=== PATIENT | male | born 1955 | race Caucasian/White ===

== ENCOUNTER 2017-03-03 07:09 | Inpatient (IN) | payer SELFPAY ==
--- NOTE | ~2017-03-03 | CO ---
Unit #: [id number] #: [id number] Patient: LUDWIN MOTA [id number] [address] [place], [place] [address] [id number] I MR#: [id number] NAME: LUDWIN MOTA ROOM: 5 Age: 61 Sex: M Admission Date: 03/03/2017 : 1955 Attending Physician: Elkin Haidre M.D. CONSULTATION REPORT REASON FOR CONSULTATION Chest pain. HISTORY OF PRESENT ILLNESS This is a 61-year-old white male, who is known to our group, who has a history of coronary artery disease where he underwent angioplasty and stent placement to the LAD in 2009. In 2010, he had PCI and stent to the circumflex and diagonal branch. At some point, he had right coronary artery stent placed. In 04/2015, he had a non-ST elevation myocardial infarction and cardiac catheterization revealed 99% in-stent stenosis to the proximal LAD stent. There was 70% stenosis of the second diagonal branch that was not dilated. The posterior marginal branch of circumflex artery had 50% in-stent stenosis. Right coronary artery had nonobstructive in-stent stenosis. He is continued on medical management. The patient presents to the emergency room with a complaint of substernal dull chest pain that radiated to bilateral inner aspect of both upper arms to his elbow, associated with dyspnea that started this morning. There was no relief after 3 sublingual nitroglycerins. He also states that he had bilateral shoulder pain with exertion like making the bed or climbing stairs prior to this event. He had no substernal chest pain or shortness of breath at that time. He recently had a bout of diarrhea with weakness and was not eating and drinking well because of the diarrhea. Today, he felt better. Because of chest pain, he came to the emergency room for evaluation. In the emergency room, he was hypertensive with blood pressure of 201/104 mmHg that was treated with nitrates and clonidine. His initial troponin was 0.06. He was given aspirin, Lovenox and nitrates. He was also given a Plavix load. His blood pressure improved. He was noted to have acute onset of renal failure with a creatinine of 1.6. Potassium was also low at 3.1. Repeat troponin was elevated at 1.34. His preceding EKG showed mild ST depression in the lateral leads. He is currently chest pain free. PAST MEDICAL HISTORY 1. PCI and stent to the LAD, 11/08/2009. 2. PCI and stent to the circumflex artery and diagonal branch on 05/22/2011 per previous dictations. 3. Non-ST elevation myocardial infarction, status post cardiac catheterization 04/19/[address] Crespo at [facility] with left main normal. LAD, proximal, 99% in-stent stenosis. Second diagonal branch with 60% to 70% in-stent stenosis. Circumflex artery nondominant vessel, normal. Posterior marginal branch, 50%, in-stent. Right coronary artery dominant vessel with distal stent with 40% in-stent stenosis. PDA Unit #: [id number] #: [id number] Patient: MOTA,LUDWIN and PLV branches are normal. Ejection fraction of 50%. 4. 2D echocardiogram on 10/28/2009 showed an ejection fraction of greater than 55% with trace tricuspid regurgitation. 5. Hypertension. 6. Hyperlipidemia. 7. Active smoker. PAST SURGICAL HISTORY No previous surgeries. SOCIAL HISTORY The patient is . He works for [employer]. He smokes up to 3/4 of pack of cigarettes daily for the past 40+ years. Drinks alcohol on rare occasion. He has no illicit drug use. FAMILY HISTORY Positive for heart disease in his mother. ALLERGIES No known drug allergies. HOME MEDICATIONS Nitroglycerin 0.4 mg sublingual p.r.n., Lipitor 80 mg q.h.s., hydralazine 50 mg daily, aspirin 81 mg daily, lisinopril 20 mg q.h.s. REVIEW OF SYSTEMS CONSTITUTIONAL: Negative for fever or chills. Has some weight gain, but no weight loss. HEENT: No headache, hearing or vision changes or difficulty with swallowing. No dizziness. CARDIOVASCULAR: Has chest pain as described in the HPI. Denies palpitations. No paroxysmal nocturnal dyspnea or orthopnea. Denies syncope or near-syncope. RESPIRATORY: Reports dyspnea with chest pain. Has occasional nonproductive cough. No hemoptysis. GASTROINTESTINAL: Positive for recent diarrhea, but no abdominal pain or vomiting. No constipation, hematemesis or hematochezia. EXTREMITIES: Negative for lower extremity edema. PHYSICAL EXAMINATION VITAL SIGNS: Blood pressure 159/98, heart rate 82, temperature is 97.8, BMI 33. GENERAL: This is an obese 61-year-old white male, who is in no acute respiratory distress. NEUROLOGIC: He is awake, alert, and oriented. There are no focal weaknesses. NECK: Trachea is midline. No thyromegaly or lymphadenopathy. No jugular venous distention. HEART: S1 and S2. Heart sounds are normal. No murmurs, rubs, or clicks. Regular rate and rhythm. LUNGS: Clear with diminished breath sounds throughout both lungs. No rales, rhonchi, or wheezes. ABDOMEN: Soft and nontender with bowel sounds are present. EXTREMITIES: Without leg edema. Pedal pulses are palpable. DIAGNOSTIC STUDIES LABORATORY RESULTS: Hemoglobin 15.9, hematocrit 47.4, platelet count 195, white count is 8.9. Sodium 132, potassium 3.1, BUN 22, creatinine 1.6, Unit #: [id number] #: [id number] Patient: MOTA,LUDWIN glucose 181, troponin 0.06 to 1.34, CK total 212, MB index 4.9. IMAGING STUDIES: Chest x-ray shows borderline cardiomegaly with no active disease. CARDIOVASCULAR STUDIES: EKG shows normal sinus rhythm with a rate of 96 beats per minute with a slight less than 0.[address] depression in the lateral leads, V4 through V6. IMPRESSION 1. Acute non-ST elevation myocardial infarction. 2. History of multiple percutaneous coronary intervention and stents. 3. Uncontrolled hypertension. 4. Hyperlipidemia. 5. Acute kidney injury secondary to volume depletion. 6. Hypokalemia. 7. Nicotine abuse. PLAN 1. Cardiology was consulted for non-ST elevation myocardial infarction. 2. Start the patient on Integrilin drip and have pharmacy to dose because of elevated creatinine. 3. Increase high-intensity statin to Lipitor 80 mg q.h.s. 4. Lipid profile will be obtained. 5. Repeat EKG. 6. Supplement potassium. 7. Agree with IV fluids to rehydrate. 8. Add beta-liz to slow heart rate. 9. Blood pressure control with HI inhibitor. 10. The patient needs a cardiac catheterization to re-evaluate his coronary anatomy given non-ST elevation myocardial infarction and history of multiple stents that had in-stent stenosis in 2015. I spoke with the patient about the cardiac catheterization including risks and benefits, and he is agreeable. 11. Encouraged the patient to quit smoking. 12. Cardiac rehab at discharge. Thank you for allowing us to assist with this patient's care. Dictated by... Arie David A.P.R.N. for Mahnaz Grant/yadira TD: 03/04/2017 04:53 JOB #: [id number] CONSULTATION REPORT Page 1 of 1 X Arie David APRN X CONSULTATION REPORT
--- NOTE | ~2017-03-03 | EKG ---
PATIENT: LUDWIN MOTA UNIT #: [id number] Ventricular Rate: 79 BPM Atrial Rate: 79 BPM P-R Interval: 142 ms QRS Duration: 80 ms Q-T Interval: 374 ms QTC Calculation(Bezet): 428 ms P [place]: -11 degrees Calculated R [place]: 33 degrees Calculated T [place]: 21 degrees Diagnosis Line: Normal sinus rhythm Diagnosis Line: Normal ECG Diagnosis Line: When compared with ECG of 03-MAR-2017 20:12, Diagnosis Line: (unconfirmed) Diagnosis Line: No significant change was found Diagnosis Line: Confirmed by DELANEY CHAVARRIA MD ([id number]) on 03/05/2017 Diagnosis Line: 3:00:14 PM INTERPRETING MD: DEON HURD
--- NOTE | ~2017-03-03 | EKG ---
PATIENT: LUDWIN MOTA UNIT #: [id number] Ventricular Rate: 76 BPM Atrial Rate: 76 BPM P-R Interval: 184 ms QRS Duration: 76 ms Q-T Interval: 402 ms QTC Calculation(Bezet): 452 ms P [place]: 77 degrees Calculated R [place]: 13 degrees Calculated T [place]: 47 degrees Diagnosis Line: Normal sinus rhythm Diagnosis Line: Normal ECG Diagnosis Line: When compared with ECG of 05-MAR-2017 11:26, Diagnosis Line: No significant change was found Diagnosis Line: Confirmed by BRAIN SANTOS MD ([id number]) on Diagnosis Line: 03/09/2017 9:52:01 AM INTERPRETING ELLA AGUILAR
--- NOTE | ~2017-03-03 | EKG ---
PATIENT: LUDWIN MOTA UNIT #: [id number] Ventricular Rate: 80 BPM Atrial Rate: 80 BPM P-R Interval: 164 ms QRS Duration: 82 ms Q-T Interval: 384 ms QTC Calculation(Bezet): 442 ms P [place]: 58 degrees Calculated R [place]: 35 degrees Calculated T [place]: 19 degrees Diagnosis Line: Normal sinus rhythm Diagnosis Line: Normal ECG Diagnosis Line: When compared with ECG of 03-MAR-2017 07:12, Diagnosis Line: Nonspecific T wave abnormality no longer evident Diagnosis Line: in Lateral leads Diagnosis Line: Confirmed by DELANEY CHAVARRIA MD ([id number]) on 03/05/2017 Diagnosis Line: 2:58:00 PM INTERPRETING MD: DEON HURD
--- NOTE | ~2017-03-03 | HP ---
Unit #: [id number] #: [id number] Patient: LUDWIN MOTA [id number] [address] [address] [id number] I MR#: [id number] NAME: LUDWIN MOTA ROOM: 5 Age: 61 Sex: M Admission Date: 03/03/2017 : 1955 Attending Physician: Gordon Montanez M.D. HISTORY AND PHYSICAL CHIEF COMPLAINT Chest pain. HISTORY OF PRESENT ILLNESS The patient is a 61-year-old male with a history of coronary artery disease, status post cardiac catheterization in 2009 which revealed 95% stenosis in the mid left anterior descending artery. The patient had stent placement. The patient underwent repeat cardiac cath on May 22, 2011, that revealed the patent stent. However, there was disease noted in the left circumflex and diagonals. The patient underwent two stents in the distal left circumflex and diagonal artery. However, the patient was lost to followup secondary to insurance. The patient stopped taking Plavix. The patient woke up this morning and went to take a shower and started noticing chest pain. The patient took nitroglycerin sublingual x3 which did not relieve the pain, and he presented to the emergency room. The patient was found to have positive troponins in the emergency room with a level of 0.06 and is being admitted for the above reasons. The patient complains of lightheadedness. He denies any diaphoresis, nausea, or vomiting. He denies any fever. PAST MEDICAL HISTORY 1. Hypertension. 2. Coronary artery disease. 3. Hyperlipidemia. 4. Active tobacco abuse. PAST SURGICAL HISTORY Cardiac stents x4. ALLERGIES No known drug allergies. HOME MEDICATIONS 1. Aspirin. 2. Lipitor. 3. Hydralazine. 4. Lisinopril. 5. Nitroglycerin. FAMILY HISTORY Reviewed and none. Unit #: [id number] #: [id number] Patient: LUDWIN MOTA SOCIAL HISTORY The patient lives in a private residence with his son. He smokes three-fourths of a pack per day. He denies any alcohol or any illicit drug abuse. REVIEW OF SYSTEMS A 14-point review of systems was performed and only pertinent positive findings are as described above. The remaining are negative. PHYSICAL EXAMINATION GENERAL: Patient is lying in bed not in acute distress. VITAL SIGNS: Temperature is 97.8, pulse 95, respiratory rate 18, blood pressure 191/105, and saturating 96% on room air. HEENT: Head atraumatic, normocephalic. Pupils equal, round, and reactive to light and accommodation. Extraocular movements are intact. NECK: Supple. LUNGS: Decreased air entry at the bases. HEART: Regular rate and rhythm. Positive for murmur. ABDOMEN: Soft. Positive bowel sounds. EXTREMITIES: No cyanosis, no clubbing. NEUROLOGIC: Alert, awake, and oriented. No gross focal motor deficit. DIAGNOSTIC STUDIES LABORATORY: Troponin 0.06. Sodium 132, potassium 3.1, chloride 104, bicarb 20, glucose 181, BUN 22, creatinine 1.6, AST 42, ALT 42, and alkaline phosphatase 100. INR is 1. Troponin less than 0.05. WBC 8.9, hemoglobin 15.9, hematocrit 47.4, and platelets are 195,000. IMAGING: Chest x-ray shows no evidence of acute pulmonary disease. CARDIOLOGY: EKG shows nonspecific T wave in the inferolateral leads. ASSESSMENT AND PLAN 1. Non-ST segment myocardial infarction. 2. Chest pain. 3. Hypertension. 4. Hypokalemia. 5. Acute kidney injury. PLAN Admit the patient as inpatient to telemetry. Patient will be evaluated by Cardiology for the non-STEMI. Check echocardiogram and check lipid profile and TSH. Continue with Lovenox 1 mg/kg subcutaneous q.12. Continue serial troponins. Continue with IV fluids of normal saline at 75 mL/hr. Patient has received 300 mg of Plavix in the emergency room. Further recommendations will follow. Dictated by Mahnaz Morris TD: 03/03/2017 19:40 JOB #: [id number] Unit #: [id number] #: [id number] Patient: LUDWIN MOTA HISTORY AND PHYSICAL Page 1 of 1 X GORDON MONTANEZ MD X HISTORY AND PHYSICAL
--- NOTE | ~2017-03-03 | CR72 ---
[facility] A Service of [facility] RADIOLOGY TEXT RESULTS PATIENT: LUDWIN MOTA LOCATION: [facility]12-30 : 59 UNIT #: [id number] AGE: [address]: GORDON DÍAZ MD SEX: M ORDER DR: [id number] [address] [address] [id number] MR#: [id number] Acc #: [id number] NAME: LUDWIN MOTA : 1955 SEX: M STUDY DATE/TIME: 03/03/2017 7:35 UNIT: SED ROOM: STUDY DESCRIPTION: CR Chest Single View Portable Attending Physician: David Carye M.D. Ordering Physician: David Carey M.D. MEDICAL IMAGING REPORT This report is preliminary unless electronic signature is present. EXAM Portable chest x-ray 03/03/2017 HISTORY Chest pain. 40 minutes prior to arrival, chest pressure, shortness of air. Smoker 45 years. Cardiac symptoms stents x4. Coronary artery disease. TECHNIQUE AP radiograph of the chest is presented. COMPARISON STUDIES 08/12/2016. FINDINGS The bony structures are unremarkable. There is borderline cardiac enlargement, which is stable. The lungs are well inflated. There is no evidence for acute pulmonary disease, pleural effusion, or pneumothorax. No suspicious nodule. Dictated by... Olivier Gallagher M.D. THIS IS AN ELECTRONICALLY VERIFIED REPORT Olivier Gallagher M.D. at 03/03/2017 5:50 PM BRITTONK/bennett TD: 03/03/2017 15:25 JOB #: [id number] [facility] A Service of [facility] RADIOLOGY TEXT RESULTS PATIENT: LUDWIN MOTA LOCATION: [facility] 5712-30 : [birth year] UNIT #: [id number] AGE: [address]: GORDON DÍAZ MD SEX: M ORDER DR: MEDICAL IMAGING REPORT Page 1 of 1
--- NOTE | ~2017-03-03 | DS ---
Unit #: [id number] #: [id number] Patient: LUDWIN MOTA [id number] [address] [place], [place] [address] [id number] MR#: [id number] NAME: LUDWIN MOTA ROOM: [facility] Age: 61 Sex: M Admission Date: 03/03/2017 : 1955 Discharge Date: 03/07/2017 Attending Physician: Elkin Haider M.D. Primary Care Physician: Primary Care Physician No DISCHARGE SUMMARY PRIMARY DIAGNOSIS Non-ST segment elevation myocardial infarction. SECONDARY DIAGNOSIS Hypertension. HOSPITAL COURSE The patient was admitted with troponin elevation and chest pain. His symptoms quickly resolved. He underwent cardiac catheterization on 03/05/[address] Crespo. Please see cath report for details. He is being treated with maximal medical therapy. No stent was placed. On 03/06/2017, the patient had an episode of hypotension associated with some chest pain early in the morning after aggressive titration of his blood pressure medications. These were titrated back and the patient did well for the next 28 hours and was discharged home. DISCHARGE DISPOSITION To home. DISCHARGE STATUS Stable. FOLLOWUP Followup is with Dr. Crespo per his recommendation. Follow up with his primary care physician whom he is setting up in 2 to 8 weeks. He currently does not have a primary care physician and sees only Dr. Crespo in his office. He is also to get a followup CBC in 5 days. The results of which will be called to Dr. Crespo's office to make sure his white blood cell count of 17,000 is trending downward. DISCHARGE DIET A heart healthy diet. DISCHARGE ACTIVITY Ad carolin. DISCHARGE MEDICATIONS Atorvastatin 80 mg p.o. daily, metoprolol tartrate 50 mg p.o. q.12 hours, hydralazine 50 mg p.o. b.i.d., lisinopril 40 mg p.o. q.h.s., aspirin 81 mg p.o. daily, Brilinta 90 mg p.o. b.i.d., Imdur ER 30 mg p.o. daily, nitroglycerin 0.4 mg sublingual q.5 minutes p.r.n. for chest pain maximum degree. Please see script for full direction. Unit #: [id number] #: [id number] Patient: LUDWIN MOTA Dictated by... Mahnaz Hdz/yadira TD: 03/10/2017 09:19 JOB #: [id number] DISCHARGE SUMMARY Page 1 of 1 X Elkin Haider MD X DISCHARGE SUMMARY
--- NOTE | ~2017-03-03 | EKG ---
PATIENT: LUDWIN MOTA UNIT #: [id number] Ventricular Rate: 62 BPM Atrial Rate: 62 BPM P-R Interval: 180 ms QRS Duration: 90 ms Q-T Interval: 412 ms QTC Calculation(Bezet): 418 ms P [place]: 77 degrees Calculated R [place]: 45 degrees Calculated T [place]: 69 degrees Diagnosis Line: Normal sinus rhythm Diagnosis Line: Normal ECG Diagnosis Line: When compared with ECG of 05-MAR-2017 05:37, Diagnosis Line: (unconfirmed) Diagnosis Line: No significant change was found Diagnosis Line: Confirmed by DELANEY CHAVARRIA MD ([id number]) on 03/05/2017 Diagnosis Line: 3:04:29 PM INTERPRETING MD: DEON HURD
--- NOTE | ~2017-03-03 | EKG ---
PATIENT: LUDWIN MOTA UNIT #: [id number] Ventricular Rate: 96 BPM Atrial Rate: 96 BPM P-R Interval: 164 ms QRS Duration: 92 ms Q-T Interval: 370 ms QTC Calculation(Bezet): 467 ms P [place]: 71 degrees Calculated R [place]: 44 degrees Calculated T [place]: 73 degrees Diagnosis Line: Normal sinus rhythm Diagnosis Line: Nonspecific ST and T wave abnormality Diagnosis Line: Prolonged QT Diagnosis Line: Abnormal ECG Diagnosis Line: When compared with ECG of 12-AUG-2016 01:06, Diagnosis Line: Nonspecific T wave abnormality now evident in Diagnosis Line: Inferior leads Diagnosis Line: Nonspecific T wave abnormality now evident in Diagnosis Line: Lateral leads Diagnosis Line: QT has lengthened Diagnosis Line: Confirmed by VINOD BERGER MD ([id number]) on Diagnosis Line: 03/03/2017 11:04:33 AM INTERPRETING MD: AB HURD
--- NOTE | ~2017-03-03 | EKG ---
PATIENT: LUDWIN MOTA UNIT #: [id number] Ventricular Rate: 67 BPM Atrial Rate: 67 BPM P-R Interval: 150 ms QRS Duration: 80 ms Q-T Interval: 392 ms QTC Calculation(Bezet): 414 ms P [place]: -20 degrees Calculated R [place]: 38 degrees Calculated T [place]: 40 degrees Diagnosis Line: Normal sinus rhythm Diagnosis Line: Normal ECG Diagnosis Line: When compared with ECG of 04-MAR-2017 05:36, Diagnosis Line: (unconfirmed) Diagnosis Line: No significant change was found Diagnosis Line: Confirmed by DELANEY CHAVARRIA MD ([id number]) on 03/05/2017 Diagnosis Line: 3:02:02 PM INTERPRETING MD: DEON HURD
--- NOTE | ~2017-03-03 | EKG ---
PATIENT: LUDWIN MOTA UNIT #: [id number] Ventricular Rate: 77 BPM Atrial Rate: 77 BPM P-R Interval: 200 ms QRS Duration: 74 ms Q-T Interval: 394 ms QTC Calculation(Bezet): 445 ms P [place]: 70 degrees Calculated R [place]: 40 degrees Calculated T [place]: 54 degrees Diagnosis Line: Normal sinus rhythm Diagnosis Line: Normal ECG Diagnosis Line: When compared with ECG of 06-MAR-2017 06:41, Diagnosis Line: (unconfirmed) Diagnosis Line: No significant change was found Diagnosis Line: Confirmed by BRAIN SANTOS MD ([id number]) on Diagnosis Line: 03/09/2017 9:52:46 AM INTERPRETING ELLA AGUILAR
[~2017-03-03 07:09] MED LIST: ACETAMINOPHEN PO; ASPIRIN81 M2 PO; B/P MED; BAYER ASPIRIN325 M1 PO; CHOLESTEROL MED; ERYTHROMYCIN O3.5 GM OP; FLOMAX0.4 M1 PO; HYDRALAZINE HCL50 MG PO; IMDUR-ER30 M1 PO; ISOSORBIDE MONO30 M1 PO; LIPITOR40 MG PO; LISINOPRIL PO; LISINOPRIL10 MG PO; LISINOPRIL20 MG PO; NICOTINE TRANSDE7 MG EXT; NITROGLYGERIN0.4 MG SL; NORCO 5/325 TAB1 TAB PO; PLAVIX PO; TENORMIN50 MG PO; UNKNOWN MEDS; VOLTAREN50 MG PO; ZESTRIL10 M2 PO
[2017-03-03 07:31] LABS: BASOPHIL# 0.1 X10e3 (0-0.3); BASOPHIL% 0.8 % (0-2.5); EOSINOPHIL# 0.3 X10e3 (0-0.7); EOSINOPHIL% 3.7 % (0.0-7.0); HEMATOCRIT 47.4 % (38.0-50.0); HEMOGLOBIN 15.9 gm/dL (13.0-16.0); LYMPHOCYTE# 1.8 X10e3 (1.0-3.5); LYMPHOCYTE% 20.5 % (17.0-45.0); MEAN CELL VOLUME 86.3 FL (83-96); MEAN CORPUSCULAR HGB CONC 33.5 g/dL (30-36); MEAN PLATELET VOLUME 9.9 FL (6.5-11.5); NEUTROPHIL# 5.7 X10e3 (1.5-7.1); PLATELET COUNT 195 X10e3 (140-420); RED BLOOD COUNT 5.48 X10e (3.90-5.60); RED CELL DISTRIBUTION WIDTH 14.4 % (11.0-15.5); WHITE BLOOD COUNT 8.9 X10e3 (4.0-10.5)
[2017-03-03 07:44] LABS: DIFF IND NO; PROTHROMBIN TIME (PATIENT) 11.2 SECONDS (9.5-12.4)
[2017-03-03 07:44] LABS: POC - CKMB 2.7 ng/mL (0.0-7.9); POC - TROPONIN <0.05 ng/mL (<=0.05)
[2017-03-03 07:50] LABS: ALBUMIN SERUM 3.5 g/dL (3.5-5.0); BILIRUBIN, DIRECT 0.1 mg/dL (0.0-0.2); BILIRUBIN,INDIRECT 0.6 mg/dL (0.0-0.9); BILIRUBIN,TOTAL 0.7 mg/dL (0.2-2.0); BUN/CREATININE RATIO 13.75; CALCIUM SERUM 8.4 mg/dL (8.4-10.2); CREATININE SERUM 1.6 mg/dL (0.6-1.4); GLOM FILT RATE Estimated 46.5 mL/min (>60); PROTEIN TOTAL SERUM 7.6 g/dL (6.0-8.3)
[2017-03-03 07:51] LABS: PARTIAL THROMBOPLASTIN TIME 22.1 SECONDS (25.6-38.1)
[2017-03-03 08:01] LABS: POTASSIUM 3.1 mmol/L (3.5-5.1)
[2017-03-03 09:17] LABS: POC - CKMB 5.4 ng/mL (0.0-7.9); POC - TROPONIN 0.06 ng/mL (<=0.05)
[2017-03-03 17:14] LABS: %MB 12.1 % (0.0-4.0); MB 25.7 ng/ml
[2017-03-04 01:28] LABS: %MB 11.1 % (0.0-4.0); MB 23.8 ng/ml
[2017-03-04 05:45] LABS: HEMOGLOBIN 14.2 gm/dL (13.0-16.0); MEAN CELL VOLUME 85.9 FL (83-96); MEAN CORPUSCULAR HEMOGLOBIN 28.3 PG (28-34); MEAN PLATELET VOLUME 9.8 FL (6.5-11.5); RED CELL DISTRIBUTION WIDTH 14.5 % (11.0-15.5); WHITE BLOOD COUNT 9.4 X10e3 (4.0-10.5)
[2017-03-04 07:25] LABS: MAGNESIUM 1.8 mg/dL (1.6-3.0)
[2017-03-04 10:35] LABS: %MB 9.1 % (0.0-4.0); MB 17.4 ng/ml
[2017-03-05 05:24] LABS: HEMATOCRIT 40.6 % (38.0-50.0); HEMOGLOBIN 13.4 gm/dL (13.0-16.0); MEAN CORPUSCULAR HEMOGLOBIN 28.3 PG (28-34); MEAN CORPUSCULAR HGB CONC 32.9 g/dL (30-36); MEAN PLATELET VOLUME 9.6 FL (6.5-11.5); RED BLOOD COUNT 4.72 X10e (3.90-5.60); RED CELL DISTRIBUTION WIDTH 14.5 % (11.0-15.5); WHITE BLOOD COUNT 11.7 X10e3 (4.0-10.5)
[2017-03-05 05:34] LABS: PARTIAL THROMBOPLASTIN TIME 29.9 SECONDS (23.5-31.3); PROTHROMBIN TIME (PATIENT) 11.3 SECONDS (10.0-11.7)
[2017-03-05 06:57] LABS: BUN/CREATININE RATIO 14.54; CALCIUM SERUM 8.8 mg/dL (8.4-10.2); CREATININE SERUM 1.1 mg/dL (0.6-1.4); GLOM FILT RATE Estimated 73.1 mL/min (>60); POTASSIUM 5.1 mmol/L (3.5-5.1)
[2017-03-05 20:22] LABS: ANGIO %MB 8.2 % (0.0-4.0)
[2017-03-06 01:28] LABS: BUN/CREATININE RATIO 12.72; CALCIUM SERUM 8.8 mg/dL (8.4-10.2); CREATININE SERUM 1.1 mg/dL (0.6-1.4); GLOM FILT RATE Estimated 73.1 mL/min (>60); MAGNESIUM 1.8 mg/dL (1.6-3.0); POTASSIUM 4.1 mmol/L (3.5-5.1)
[2017-03-06 03:53] LABS: HEMATOCRIT 43.6 % (38.0-50.0); HEMOGLOBIN 14.5 gm/dL (13.0-16.0); MEAN CORPUSCULAR HEMOGLOBIN 28.5 PG (28-34); MEAN CORPUSCULAR HGB CONC 33.2 g/dL (30-36); MEAN PLATELET VOLUME 9.7 FL (6.5-11.5); RED BLOOD COUNT 5.07 X10e (3.90-5.60); RED CELL DISTRIBUTION WIDTH 14.2 % (11.0-15.5); WHITE BLOOD COUNT 14.4 X10e3 (4.0-10.5)
[2017-03-06 04:37] LABS: ANGIO %MB 9.4 % (0.0-4.0); ANGIO MB 24.5 ng/ml
[2017-03-06 04:46] LABS: BUN/CREATININE RATIO 12.72; CALCIUM SERUM 9.1 mg/dL (8.4-10.2); CREATININE SERUM 1.1 mg/dL (0.6-1.4); GLOM FILT RATE Estimated 73.1 mL/min (>60); POTASSIUM 4.4 mmol/L (3.5-5.1)
[2017-03-06 11:37] LABS: %MB 8.6 % (0.0-4.0); MB 19.6 ng/ml
[2017-03-07 05:45] LABS: HEMATOCRIT 43.9 % (38.0-50.0); HEMOGLOBIN 14.4 gm/dL (13.0-16.0); MEAN CELL VOLUME 86.3 FL (83-96); MEAN CORPUSCULAR HEMOGLOBIN 28.3 PG (28-34); MEAN CORPUSCULAR HGB CONC 32.8 g/dL (30-36); MEAN PLATELET VOLUME 9.5 FL (6.5-11.5); RED BLOOD COUNT 5.09 X10e (3.90-5.60); RED CELL DISTRIBUTION WIDTH 14.4 % (11.0-15.5); WHITE BLOOD COUNT 17.3 X10e3 (4.0-10.5)
[2017-03-07 07:29] LABS: BUN/CREATININE RATIO 20.83; CALCIUM SERUM 9.1 mg/dL (8.4-10.2); CREATININE SERUM 1.2 mg/dL (0.6-1.4); GLOM FILT RATE Estimated 65.8 mL/min (>60); POTASSIUM 4.2 mmol/L (3.5-5.1)
[2017-03-07 08:17] LABS: MB 5.9 ng/ml
[2017-03-07] MEDS ORDERED: LOPRESSOR PO (14:07)
[2017-03-07] MEDS ORDERED: BRILINTA90 MG PO (14:08)
[2017-03-07] MEDS ORDERED: IMDUR PO (14:09)
== END 2017-03-07 15:37 | disposition home or self-care (01) | DRG 247 ==
LOC: SED 07:09 → CEDOF 10:47 → SED 10:47 → C5C 12:12 → CEDOF 12:12 → C5C 19:25 → CEDOF 19:25 → C5C 03-04 06:15
PROVIDERS: Emergency Medicine; Internal Medicine; Internal Medicine Cardiovascular Disease; Nurse Practitioner
PROC: B246YZZ Ultrasonography of Right and Left Heart using Other Contrast (ICD-10-PCS; principal; 2017-03-04)
PROC: 027035Z Dilation of Coronary Artery, One Artery with Two Drug-eluting Intraluminal Devices, Percutaneous Approach (ICD-10-PCS; 2017-03-05)
PROC: 4A023N7 Measurement of Cardiac Sampling and Pressure, Left Heart, Percutaneous Approach (ICD-10-PCS; 2017-03-05)
PROC: B211YZZ Fluoroscopy of Multiple Coronary Arteries using Other Contrast (ICD-10-PCS; 2017-03-05)
PROC: B215YZZ Fluoroscopy of Left Heart using Other Contrast (ICD-10-PCS; 2017-03-05)
DX: I21.4 Non-ST elevation (NSTEMI) myocardial infarction (principal); N17.9 Acute kidney failure, unspecified; I95.89 Other hypotension; I25.10 Atherosclerotic heart disease of native coronary artery without angina pectoris; Z95.5 Presence of coronary angioplasty implant and graft; I10 Essential (primary) hypertension; E78.5 Hyperlipidemia, unspecified; F17.210 Nicotine dependence, cigarettes, uncomplicated; Z71.6 Tobacco abuse counseling; Z82.49 Family history of ischemic heart disease and other diseases of the circulatory system; E87.6 Hypokalemia; Z79.82 Long term (current) use of aspirin
CPT/HCPCS: 36415; 71010; 80048; 80061; 80076; 82550; 82553; 82947; 83735; 84443; 84484; 85025; 85027; 85347; 85610; 85730; 93005; 93306; 94760; 96372; 99291; C1725; C1769; C1874; C1887; C1894; J1644; J1650; J2250; J2270; J3010; J3475

== ENCOUNTER → 2017-03-12 | Outpatient (CLI) | payer SELFPAY ==
[~2017-03-12] MED LIST changes: +BRILINTA90 MG PO; +IMDUR PO; +LOPRESSOR PO
[2017-03-12 16:17] LABS: HEMATOCRIT 43.4 % (38.0-50.0); HEMOGLOBIN 14.2 gm/dL (13.0-16.0); MEAN CELL VOLUME 87.1 FL (83-96); MEAN CORPUSCULAR HEMOGLOBIN 28.4 PG (28-34); MEAN CORPUSCULAR HGB CONC 32.6 g/dL (30-36); MEAN PLATELET VOLUME 9.6 FL (6.5-11.5); RED BLOOD COUNT 4.98 X10e (3.90-5.60); RED CELL DISTRIBUTION WIDTH 14.2 % (11.0-15.5); WHITE BLOOD COUNT 16.2 X10e3 (4.0-10.5)
== END | disposition home or self-care (01) ==
LOC: CLAB 15:53
DX: D72.829 Elevated white blood cell count, unspecified (principal)
CPT/HCPCS: 36415; 85027